=== PATIENT | female | born 1995 | race Caucasian/White ===

== ENCOUNTER 2019-01-27 11:52 | Emergency (ER) | payer OTHER ==
[~2019-01-27] VITALS: Ht 167.6 cm; Wt 104.3 kg
[2019-01-27] MEDS ORDERED: BUTALB-APAP-CA1 EACH PO (13:40)
[2019-01-27] MEDS ORDERED: ONDANSETRON HCL4 M2 PO (13:40)
[2019-01-27 13:50] VITALS: BP 114/71
== END 2019-01-27 13:50 | disposition home or self-care (01) ==
LOC: ER 11:52
DX: S06.0X0A Concussion without loss of consciousness, initial encounter (principal); S16.1XXA Strain of muscle, fascia and tendon at neck level, initial encounter; W18.39XA Other fall on same level, initial encounter; Y93.89 Activity, other specified; Y92.218 Other school as the place of occurrence of the external cause; Y99.0 Civilian activity done for income or pay